=== PATIENT | female | born 1960 | race Caucasian/White ===

== ENCOUNTER 2017-10-07 15:51 | Inpatient (IN) | payer OTHER ==
--- NOTE | 2017-10-07 16:03 | EDPHY ---
H & P Time Seen by Provider: 10/07/17 15:54 HPI/ROS: CHIEF COMPLAINT: Limited trauma activation, fall from horse, right hip pain HISTORY OF PRESENT ILLNESS: The patient presents the emergency department is limited trauma activation. The patient was thrown from a horse landing on her right hip. She was unable to stand up or weight bear. She denies any associated numbness or weakness. The patient did not strike her head or lose consciousness. She has no complaints of headache, neck pain, chest pain, difficulty breathing or additional extremity complaints. The patient has no prior history of hip surgery. The patient did have a energy bar for lunch. Patient has remote history of breast cancer status post mastectomy. She is currently taking tamoxifen. The patient last ate at approximately 1:00 p.m.. REVIEW OF SYSTEMS: A comprehensive 10 point review of systems is otherwise negative aside from elements mentioned in the history of present illness. Source: Patient Exam Limitations: No limitations - Personal History Tetanus Vaccine Date: 2011 - Medical/Surgical History Hx Asthma: No Hx Chronic Respiratory Disease: No Hx Diabetes: No Hx Cardiac Disease: No Hx Renal Disease: No Hx Cirrhosis: No Hx Alcoholism: No Hx HIV/AIDS: No Hx Splenectomy or Spleen Trauma: No Other PMH: s/p left hand surgery, mastectomy - Social History Smoking Status: Never smoked - Physical Exam Exam: General Appearance: Alert, mild discomfort Eyes: Pupils equal and round no pallor or injection ENT, Mouth: Mucous membranes moist Respiratory: There are no retractions, lungs are clear to auscultation Cardiovascular: Regular rate and rhythm Gastrointestinal: Abdomen is soft and nontender, no masses, bowel sounds normal Neurological: 5/5 strength noted all 4 extremities. Was unable to assess strength in the right hip secondary to suspected fracture. Sensation intact to light touch throughout all dermatomal distributions in the right left leg Skin: Warm and dry, no rashes Musculoskeletal: Neck is supple nontender Extremities: The right leg flexed and internally rotated. Constitutional: Initial Vital Signs Temperature (C) 37.2 C 10/07/17 16:04 Heart Rate 66 10/07/17 16:04 Respiratory Rate 16 10/07/17 16:04 Blood Pressure 114/75 10/07/17 16:04 O2 Sat (%) 94 10/07/17 16:04 O2 Delivery Mode Room Air Allergies/Adverse Reactions: amoxicillin [Amoxicillin] Allergy (Verified 02/11/14 16:02) Hives Home Medications: Medication Instructions Recorded Herbals/Supplements -Info Only 1 ea PO DAILY 02/11/14 Multivitamins [Multivitamin (*)] 1 each PO DAILY 02/11/14 [place]-3 Fatty Acids [Fish Oil 1000 1,000 mg PO BID 02/11/14 mg (*)] Tamoxifen Citrate 20 mg PO DAILY 10/07/17 Medical Decision Making - Diagnostics EKG Interpretation: EKG: Complete interpretation has been separately recorded in the [facility] archive. Summary impression: Sinus rhythm, rate 70 Imaging Results: Imaging Impressions Hip X-Ray 10/07/17 16:01 Impression: Displaced angulated right femoral neck fracture. Extremity CT 10/07/17 16:46 Impression: Significantly displaced subcapital hip fracture. Please see above. We would be happy to review interactive 3-D reconstructions with you in the x- ray department. ED Course/Re-evaluation: The patient had an IV established. She received 0.5 mg of Dilaudid and 4 mg of Zofran. She presents to the ED is limited trauma activation. She has an isolated femoral neck fracture - I have downgraded her from limited trauma activation status at 4:30 p.m. In the setting of an isolated extremity fracture. Dr. Quinones from trauma surgery has been notified. He will see the patient in consultation. Consultation was made with Dr. Rivas Koch at 4:35 p.m.. He is evaluating the patient emergency department at 5:10 p.m.. The patient did undergo CT scan of the hip in the emergency department for evaluation of a possible acetabular fracture. The result of this imaging study demonstrated no evidence of a obvious acetabular or pelvic fracture. The patient will be admitted to a medical-surgical floor bed. Patient is taken to the operating room at 6:30 p.m.. She was seen by the general surgeon in the emergency department prior to transfer to the operating room. Differential Diagnosis: Differential diagnosis considered includes pelvic fracture, hip fracture, hip dislocation, neurovascular injury - Data Points Medications Given: Discontinued Medications Hydromorphone HCl (Dilaudid) 0.5 mg IVP EDNOW ONE Stop: 10/07/17 16:25 Last Admin: 10/07/17 16:34 Dose: 0.5 mg Hydromorphone HCl (Dilaudid) 1 mg IVP EDNOW ONE Stop: 10/07/17 17:30 Last Admin: 10/07/17 17:32 Dose: 1 mg Ondansetron HCl (Zofran) 4 mg IVP EDNOW ONE Stop: 10/07/17 16:26 Last Admin: 10/07/17 16:34 Dose: 4 mg Departure - Departure Disposition: [facility] Inpatient Acute Clinical Impression: Displaced fracture of right femoral neck Condition: Good
[2017-10-07] MEDS ORDERED: HYDROmorphONE/DILAUDID 2 MG/ML INJ IVP ONE ×2 (16:24→17:29)
[2017-10-07] MEDS ORDERED: ONDANSETRON 4 MG/2 ML VIAL IVP ONE (16:25)
[2017-10-07 17:11] LABS: PLATELET COUNT 252 10^3/uL (150-400)
--- NOTE | 2017-10-07 17:16 | CPEKG ---
Heart Rate: 70 RR Interval: 857 P-R Interval: 160 QRSD Interval: 88 QT Interval: 424 QTC Interval: 458 P [place]: 60 QRS [place]: 75 T Wave [place]: 65 EKG Severity - BORDERLINE ECG - EKG Impression: SINUS RHYTHM Electronically Signed By: Faheem Khalil 07-Oct-2017 18:23:46
--- NOTE | 2017-10-07 18:02 | PDGENHP ---
<Elisha Monaco S - Last Filed: 10/07/17 17:59> History & Physical Chief Complaint: Right hip pain History of Present Illness: Right hip pain following fall off horse 10/07/17. Unable to bear weight. Last meal at 1:30 pm. Time of fall: 2pm. Pertinent Past, Social, Family History: H/O bilateral mastectomy for breast cancer. Relevant Physical Exam: Right hip shortened and externally rotated. Unable to bear weight. X-ray and CT shows right hip femoral neck fracture. Cardiorespiratory Assessment: RRR, nonlabored breathing, no diaphoresis, C2A. <Rivas Koch R - Last Filed: 10/07/17 19:05> A/P Assessment: Closed, displaced right femoral neck fracture in 57yo active female with no antecedent hip pathology. This appears to be an isolated injury, and is considered a surgical emergency. Plan: Emergent transfer up to the OR for CR vs OR and IF. Bedrest and position of comfort. Signed and witnessed informed consent obtained and placed in chart by me (Jori Koch MD). All questions answered.
[2017-10-07] MEDS ORDERED: LR 1,000 ML IV ONE (18:12)
[2017-10-07] MEDS ORDERED: ceFAZolin 2 GM/SWFI 2 GM/20 ML SYR IVP ONE ×2 (18:29→19:00)
[2017-10-07] MEDS ORDERED: LR 1,000 ML IV SCH ×2 (18:30→23:26)
--- NOTE | 2017-10-07 18:41 | GCON ---
[f rep st] CONSULTATION HISTORY OF PRESENTING ILLNESS: The patient is a 57-year-old female who was riding a horse today. She has never taken this horse over a jump, and when it came up to the jump and stopped. The patient flew off the horse, landing on her right hip and broke the femoral neck. The accident happened approximately 2 :30, EMS arrived approximately 3 o'clock, and she was brought to [facility]. She was evaluated by Dr. Khalil and the right femoral neck fracture was identified. I was asked to come see her for trauma consultation. She will be admitted by Dr. Koch. He will take her to surgery for operative repair of her right hip. She had a flax muffin and orange juice at 6:30, she had a Power bar at 11 and another Power bar at 1:30. Note is made that she was wearing a helmet, did not hit her head and did not have a loss of consciousness. On admission, her airway was unencumbered. She was breathing without difficulty. She persists in indicating the only pain she has is her right hip. SOCIAL HISTORY: She does not smoke. She drinks 1 glass of wine 5-7 nights a week. ALLERGIES: To amoxicillin, as manifested by hives. PAST MEDICAL HISTORY: She had a bilateral mastectomy for breast cancer and takes tamoxifen. The only other surgery was a left UCL. There is no history of rheumatic fever, tuberculosis, hepatitis, or transfusions. REVIEW OF SYSTEMS: As mentioned above, she had breast cancer which was treated by bilateral mastectomy and tamoxifen. She wears contacts for visual correction. She has 4 dental crowns. Review of systems otherwise quite negative. No limits on her activities. No history of steroid use. PHYSICAL EXAMINATION: VITAL SIGNS: 114/75, at 88. Respiratory rate is 16. Room air sats are 94. Temperature is 37.2. GENERAL: She is awake and alert, complaining only of her right hip. HEENT: Her skull is normocephalic and atraumatic. There is no Avila sign. There are no raccoon eyes. NEUROLOGIC: She is oriented to person, place, and time. Melvin Coma Scale is 15. Strength is 5/5 in all muscle groups. Cerebellar function is intact to finger- nose testing. She is able to do serial 7s. RECTAL: Examination is not performed at this time. MUSCULOSKELETAL: Right upper extremity is unremarkable. Right clavicle is palpably normal. The left clavicle has an irregularity to it consistent with a possible prior fracture. She does not recall ever having a clavicular fracture. CHEST: Stable to AP and lateral compression. Lung sounds are equal, though I am unable to sit her up to examine her back completely. BACK: Her spine is palpably nontender throughout its length. CARDIAC: S1, S2 are normal. ABDOMEN: Soft and nontender. Pelvis is stable to AP and lateral compression. Pressure is not placed over the right hip. EXTREMITIES: Lower extremities are unremarkable. She has good pulses and sensation in her right lower extremity. LABORATORY: Her white blood cell count is 5.8, hematocrit is 37. Her chemistries are unremarkable. IMPRESSION: Patient with isolated orthopedic injury from horse riding accident. I do not detect any other signs of current trauma. The irregular left clavicle appears to be an old, unrecollected injury. /[id number]/MODL MTDD
[2017-10-07] MEDS ORDERED: BUPIVACAINE 0.25% 30 ML SDV ONE (18:54)
[2017-10-07] MEDS ORDERED: CHLORHEXIDINE GLUC HIBICLENS 118 ML BTL TP ONE (18:54)
[2017-10-07] MEDS ORDERED: MIDAZOLAM 2 MG/2 ML VIAL IVP ONE (19:00)
--- NOTE | 2017-10-07 19:06 | PDANEPAE ---
ANE History of Present Illness ORIF Right femor ANE Past Medical History - Cardiovascular History Hx Hypertension: No Hx Arrhythmias: No Hx Coronary Artery / Peripheral Vascular Disease: No Hx CHF / Valvular Disease: No Hx Palpitations: No - Pulmonary History Hx COPD: No Hx Asthma/Reactive Airway Disease: No Hx Recent Upper Respiratory Infection: No Hx Oxygen in Use at Home: No Hx Sleep Apnea: No - Neurologic History Hx Cerebrovascular Accident: No Hx Seizures: No Hx Dementia: No - Endocrine History Hx Diabetes: No Hypothyroid: No Hyperthyroid: No - Renal History Hx Renal Disorders: No - Liver History Hx Hepatic Disorders: No - Neurological & Psychiatric Hx Hx Neurological and Psychiatric Disorders: No - Cancer History Hx Cancer: Yes Cancer History Comment: R breast CA. - Congenital Disorder History Hx Congenital Disorders: No - GI History GERD: no Hx Gastrointestinal Disorders: No - Other Health History Other Health History: none - Chronic Pain History Chronic Pain: No - Surgical History Prior Surgeries: 1985- thumb surg. ANE Review of Systems Review of Systems: - Exercise capacity METS (RN): 4 METS ANE Patient History - Allergies Allergies/Adverse Reactions: amoxicillin [Amoxicillin] Allergy (Verified 02/11/14 16:02) Hives - Home Medications Home medications: home medication list seen and reviewed Home Medications: Herbals/Supplements -Info Only 1 ea PO DAILY 02/11/14 [Last Taken 02/11/14] Multivitamins [Multivitamin (*)] 1 each PO DAILY 02/11/14 [Last Taken 02/15/14 09:00] [place]-3 Fatty Acids [Fish Oil 1000 mg (*)] 1,000 mg PO BID 02/11/14 [Last Taken 02/11/14] Tamoxifen Citrate 20 mg PO DAILY 10/07/17 [Last Taken Unknown] - NPO status NPO Since - Liquids (Date): 10/07/17 NPO Since - Liquids (Time): 13:30 NPO Since - Solids (Date): 10/07/17 NPO Since - Solids (Time): 13:30 - Anes Hx Anes Hx: post operative nausea - Smoking Hx Smoking Status: Never smoked Marijuana use: No - Alcohol Use Alcohol Use: Occasionally - Family Anes Hx Family Hx Anesthesia Complications: mother-memory issues. ANE Labs/Vital Signs - Labs Result Diagrams: 10/07/17 17:04 10/07/17 17:04 - Vital Signs Blood Pressure: 102/61 Heart Rate: 61 Respiratory Rate: 12 O2 Sat (%): 98 Height: 177.8 cm Weight: 65.771 kg ANE Physical Exam - Airway Neck exam: FROM Mallampati Score: Class 2 Mouth exam: normal dental/mouth exam - Pulmonary Pulmonary: no respiratory distress - Cardiovascular Cardiovascular: regular rate and rhythym, no murmur, rub, or gallop - ASA Status ASA Status: II ANE Anesthesia Plan Anesthesia Plan: general endotracheal anesthesia Total IV Anesthesia: No
--- NOTE | 2017-10-07 19:10 | PDANEPAE ---
ANE Past Medical History - Cardiovascular History Hx Hypertension: No Hx Arrhythmias: No Hx Coronary Artery / Peripheral Vascular Disease: No Hx CHF / Valvular Disease: No Hx Palpitations: No - Pulmonary History Hx COPD: No Hx Asthma/Reactive Airway Disease: No Hx Recent Upper Respiratory Infection: No Hx Oxygen in Use at Home: No Hx Sleep Apnea: No - Neurologic History Hx Cerebrovascular Accident: No Hx Seizures: No Hx Dementia: No - Endocrine History Hx Diabetes: No Hypothyroid: No Hyperthyroid: No - Renal History Hx Renal Disorders: No - Liver History Hx Hepatic Disorders: No - Neurological & Psychiatric Hx Hx Neurological and Psychiatric Disorders: No - Cancer History Hx Cancer: Yes Cancer History Comment: R breast CA. - Congenital Disorder History Hx Congenital Disorders: No - GI History GERD: no Hx Gastrointestinal Disorders: No - Other Health History Other Health History: none - Chronic Pain History Chronic Pain: No - Surgical History Prior Surgeries: 1985-L thumb surg. ANE Review of Systems Review of Systems: - Exercise capacity METS (RN): 4 METS ANE Patient History - Allergies Allergies/Adverse Reactions: amoxicillin [Amoxicillin] Allergy (Verified 02/11/14 16:02) Hives - Home Medications Home Medications: Herbals/Supplements -Info Only 1 ea PO DAILY 02/11/14 [Last Taken 02/11/14] Multivitamins [Multivitamin (*)] 1 each PO DAILY 02/11/14 [Last Taken 02/15/14 09:00] [place]-3 Fatty Acids [Fish Oil 1000 mg (*)] 1,000 mg PO BID 02/11/14 [Last Taken 02/11/14] Tamoxifen Citrate 20 mg PO DAILY 10/07/17 [Last Taken Unknown] - NPO status NPO Since - Liquids (Date): 10/07/17 NPO Since - Liquids (Time): 13:30 NPO Since - Solids (Date): 10/07/17 NPO Since - Solids (Time): 13:30 - Smoking Hx Smoking Status: Never smoked - Alcohol Use Alcohol Use: Occasionally - Family Anes Hx Family Hx Anesthesia Complications: mother-memory issues. ANE Labs/Vital Signs - Labs Result Diagrams: 10/07/17 17:04 10/07/17 17:04 - Vital Signs Blood Pressure: 102/61 Heart Rate: 61 Respiratory Rate: 12 O2 Sat (%): 98 Height: 177.8 cm Weight: 65.771 kg
[2017-10-07] MEDS ORDERED: SCOPOLAMINE HYDROBROMIDE 1 MG/3 DAYS PATCH TD SCH (19:15)
[2017-10-07] MEDS ORDERED: LIDOCAINE 2% 5 ML SDV ONE (19:24)
[2017-10-07] MEDS ORDERED: ONDANSETRON 4 MG/2 ML VIAL ONE (19:24)
[2017-10-07] MEDS ORDERED: DEXAMETHASONE 4 MG/ML VIAL ONE (19:24)
[2017-10-07] MEDS ORDERED: PROPOFOL/EMULSION 500 MG/50 ML BOTTLE IV ONE ×2 (19:24)
[2017-10-07] MEDS ORDERED: ROCURONIUM 100 MG/10 ML VIAL ONE (19:24)
[2017-10-07] MEDS ORDERED: GLYCOPYRROLATE 0.2 MG/1 ML VIAL ONE (19:24)
--- NOTE | 2017-10-07 19:25 | GCON ---
[f rep st] CONSULTATION HISTORY OF PRESENT ILLNESS: Patient is a pleasant 57-year-old female who presents to the ED following a fall off a horse and landing directly on her right hip. She was unable to stand or bear weight at this time and is holding her hip in external rotation while in bed. She did not strike her head or lose consciousness at the time of her fall. Patient ate a Power Bar at 1:30 p.m. and the fall occurred at approximately 2pm Pertinent history for bilateral breast cancer with double mastectomy, and is currently taking tamoxifen. She denies any worsening pain, abnormal numbness, tingling, change in heat or color of the extremity, cough, congestion, shortness of breath, claudication, change in distal ROM, headache, neck pain, chest pain, dyspnea. PAST MEDICAL HISTORY: Pertinent for previous history of breast cancer, treated without radiation or chemotherapy. PAST SURGICAL HISTORY: Pertinent for left hand surgery and bilateral mastectomy. ALLERGIES: PCN --> hives/rash. MEDICATIONS: Tamoxifen. SOCIAL HISTORY: No history of smoking, drug or alcohol use. . Active with horseback riding. FAMILY HISTORY: No h/o bleeding problems, respiratory issues or CVD. REVIEW OF SYSTEMS: A 10-point review of systems was negative except for as stated above. PHYSICAL EXAMINATION: GENERAL: Patient is alert and oriented. Able to respond appropriately to questions. Mild discomfort noted. HEENT: Normocephalic, atraumatic. EOMs intact. Moist buccal mucosa. Patent nares. Hearing intact. NECK: No lymphadenopathy. Full AROM. Negative Lhermitte. Negative Spurling. NTTP. CARDIOVASCULAR: Regular rate and rhythm. LUNGS: Nonlabored breathing. No diaphoresis. SKIN: Intact, no ecchymosis, erythema, edema, calor or other lesions. No tattoos. MUSCULOSKELETAL: RLE shortened and externally rotated with mild swelling noted to right hip. TTP over right hip and with any RLE motion. No erythema, ecchymosis or calor noted. Comp's soft. NTTP from R mid thigh to foot/ankle. DNVI bilaterally with gross sensation intact bilaterally in lower extremities with no focal deficits. Calves soft, supple, and nontender to palpation bilaterally with brisk cap refill and palpable DP/PT pulses. Negative bilateral Homans. NEURO: Nonfocal, no deficits noted, C5-T1 and L2-S1 intact. DTRs 1+ BUE's, deferred on BLEs. Secondary survey negative for any other MSK injuries over BUE /BLEs. PSYCH: A+Ox3. Appropriate mood and affect. RADIOLOGY: Plain XRs and CT of right hip show a displaced and rotated subcapital femoral neck fracture with some comminution. No other fractures, malalignments or deformities noted. Images personally reviewed by myself and Dr. Koch. ASSESSMENT: Closed, displaced, right hip subcapital femoral neck fracture ( Garden IV) in young person, representing a surgical emergency. PLAN: At this time, patient is to be kept n.p.o. She has provided an informed consent by Dr. Koch today for right hip closed vs ORIF. She will be taken to surgery emergently once cleared by anesthesia. Dr Quinones of Trauma svce has evaluated the patient, and agrees that she has an isolated R hip injury, representing a surgical emergency, and has agreed to allow this surgery before his own surgeries. EKG has been ordered. Proph IV abx, SCDs have been ordered preoperatively as well as the use of knee high JOSE EDUARDO hose for DVT prevention. Additionally, patient is on bed rest and position of comfort. We will move her to the OR DOV and be admitted to Dr Koch. Patient was seen and examined in conjunction with Dr. Koch. /[id number]/MODL MTDD
[2017-10-07] MEDS ORDERED: MIDAZOLAM 2 MG/2 ML VIAL ONE (19:29)
[2017-10-07] MEDS ORDERED: epHEDrine SULFATE 10 MG/ML SYR ONE ×2 (20:39)
[2017-10-07] MEDS ORDERED: oxyCODONE IR 5 MG TAB PO PRN (20:57)
[2017-10-07] MEDS ORDERED: HYDROCODONE/APAP 5/325 TAB PO PRN (20:57)
[2017-10-07] MEDS ORDERED: NALOXONE HCL 0.4 MG/ML INJ IVP PRN (20:57)
[2017-10-07] MEDS ORDERED: PROMETHAZINE HCL 25 MG/ML INJ IVP PRN (20:57)
[2017-10-07] MEDS ORDERED: ONDANSETRON 4 MG/2 ML VIAL IVP PRN (20:57)
[2017-10-07] MEDS ORDERED: ALBUTEROL 3 ML DEYVIAL IH PRN (20:57)
[2017-10-07] MEDS ORDERED: HYDROmorphONE/DILAUDID 2 MG/ML INJ IVP PRN (20:57)
[2017-10-07] MEDS ORDERED: ACETAMINOPHEN 500 MG TAB PO PRN (20:57)
[2017-10-07] MEDS ORDERED: MEPERIDINE 25 MG/ML SYR ONE (21:41)
[2017-10-07] MEDS: MEPERIDINE 25 MG/ML SYR IVP PRN ×2 (21:44→22:00)
--- NOTE | 2017-10-07 22:05 | POSTOPPROG ---
Post Op Note Date of Operation: 10/07/17 Surgeon: Rivas Koch Medical Parasitologist: COLE Cast Anesthesia: GET(General Endotracheal) Pre-op Diagnosis: Right hip femoral neck fracture Post-op Diagnosis: Right hip femoral neck fracture Indication: Right hip femoral neck fracture Procedure: Right hip ORIF with percutaneous pinning Inf/Abcess present in the surg proc area at time of surgery?: No Depth: Deep Incisional (Fascial) EBL: Minimal Complications: None.
[2017-10-07] MEDS ORDERED: fentaNYL 100 MCG/2 ML INJ ONE (22:14)
[2017-10-07] MEDS: fentaNYL 100 MCG/2 ML INJ IVP PRN ×3 (22:16→22:37)
--- NOTE | 2017-10-07 22:32 | GOP ---
[f rep st] OPERATIVE REPORT DATE OF OPERATION: 10/07/2017 SURGEON: Rivas Koch MD IT RISK AND ASSURANCE SENIOR MANAGER: Elisha Monaco PA-C. ANESTHESIA: General. ANESTHESIOLOGIST: Dr. Patel. PREOPERATIVE DIAGNOSIS: Closed, displaced right femoral neck fracture. POSTOPERATIVE DIAGNOSIS: Closed, displaced right femoral neck fracture. PROCEDURE PERFORMED: Closed reduction, internal fixation of right femoral neck fracture. FINDINGS: Garden IV fully displaced right femoral neck fracture, closed, bone quality was relatively good for the patient's ethnicity, age, and sex. There was some posterior comminution,; though, othe rwise an anatomic reduction was obtained directly by me with closed measures. After fixation, leg le ngths of both extremities, as well as rotation was symmetric and heel palm testing was normal. SPECIMENS: None. ESTIMATED BLOOD LOSS: 20 cc. INDICATIONS: This is a 57-year-old active female who was thrown from a horse earlier today, landing directly on her right hip. She had no prior hip history, no antecedent hip pain, unlimited walking t olerance, and was very active with athletics and hiking. As a result of the displaced femoral neck f racture in a young person, this was treated as a surgical emergency and she was brought to the operat ing room as soon as possible. She was educated regarding her diagnosis, as well as the risks, benefi ts, and alternatives to surgery. She provided a signed and witnessed informed consent, which was roma guadalupe in the patient's chart. See history and physical for additional information. The patient was se en by the Trauma Service, Dr. Quinones, prior to surgery, and we agreed that this was an isolated injur y after 2 secondary surveys. DESCRIPTION OF PROCEDURE: Dunia was identified in the preoperative holding area and her right hip wa s signed and designated as the operative site. The patient was confirmed in left lower extremity JOSE EDUARDO hoes and SCDs were removed due to placement of the left lower extremity in the fracture table boot. However, prior to surgery and medially after surgery, SCDs were in place. The patient was carefully positioned on the fracture table after general anesthesia. Closed reduction removal using Leadbette r technique was performed by me with a palpable clunk and immediate heel palm testing normal. Prior to placing the legs in the traction devices, the AP image of the right hip was confirmed to be anatom ic in appearance. Next, the right lower extremity was carefully placed in the fracture table maintai hernandez traction to facilitate maintenance of reduction. The right lower extremity was then placed in a pproximately neutral rotation with toes straight up and neutral adduction. It was neutral in flexion /extension as well. Left lower extremity was extended at the hip and the leg was dropped using the o pposite leg arm. In putting both feet in the boots, abundant padding was placed around both lower ex tremities, including ABDs and cast padding. Once the fracture was confirmed anatomic in orientation both on AP and lateral views using the large C-arm, the right hip was prepped and draped in the usual sterile manner. Please note, the large C-arm was also prepped and draped in the usual manner in ord er to be used sterile throughout the surgery. A 5 cm lateral incision was placed directly over the lateral aspect of the greater trochanter. A ful l-thickness dermal incision was made after the skin was anesthetized with 0.25% Marcaine with epineph rine. Careful dissection was taken down through the subcutaneous fat, which was relatively abundant. Retractors were placed, including Meyerding retractors. The IT band was identified and then divide d in parallel with its fibers and the skin incision. The vastus lateralis fascia was then identified and divided, and blunt dissection was used to divide through the lateral muscle. The lateral cortex of the femur was identified and then a series of 3 guidewires were placed in optimum position, i.e. inferior and center along the calcar, and then 1 anterosuperior and posterosuperior to the initial in ferior guidewire. Inverted triangle constellation of pins was created. These wires were found to be in the optimum position on both AP and lateral views. Each of them were then overdrilled with a can nulated 5-0 drill through the lateral cortex and lateral aspect of the proximal femur short of the fr acture site. Measurements were taken for the appropriate depth of each cannulated screw. Each screw was placed with a washer. A total of 3 screws were placed. The inferior screw was placed 1st with a long partial thread to just beyond the fracture site, and only limited compression was utilized. N ext, the anterosuperior screw was placed, and a short, partially threaded screw with washer and compr ession was achieved here. Finally, an additional long threaded screw was placed with only the proxim al threads not crossing the fracture site. This was more of a neutralization screw. Excellent compr ession was achieved through all screws. Anatomic reduction was achieved with very nice anatomic alig nment and compression at the fracture site. Once this was completed, finalized images were taken wit h the large C-arm. Anatomic reduction, as well as appropriate position of the hardware was confirmed . Finalized images were printed. The wound was then copiously irrigated with sterile saline and bhargav sure was performed. IT band was closed with multiple #1 Ethibond sutures. The deep fat space was reapproximated with 0 V icryl sutures. The deep dermal layer was closed with multiple 2-0 Vicryl sutures. The skin was clos ed with mechelle. The wound was further anesthetized with 0.25% Marcaine with epinephrine. Sterile p ostop surgical dressings were applied. Right lower extremity JOSE EDUARDO hoes and SCDs were applied and the left lower extremity SCD was then reapplied. Both limbs were taken out of the traction devices and b oots. The patient was then transferred to her [facility] and anesthesia service took over to wake her up . TOURNIQUET TIME: None. DRAINS: None. IMPLANTS: Synthes 7.3 mm cannulated screws with washers, all partially-threaded; 2 long thread, 1 a short thread. A total of 3 pairs of screw and washers were placed. COMPLICATIONS: None. DISPOSITION: The patient was extubated and transferred to the PACU in stable condition. /[id number]/MODL
[2017-10-07] MEDS ORDERED: ceFAZolin 2 GM/DEXTROSE 100 ML IV SCH (23:26)
[2017-10-08] MEDS ORDERED: oxyCODONE IR 5 MG TAB PO PRN (01:07)
[2017-10-08] MEDS: HYDROCODONE/APAP 5/325 TAB PO PRN ×2 (01:18→05:26)
[2017-10-08] MEDS: ceFAZolin 2 GM/SWFI 2 GM/20 ML SYR IVP SCH ×3 (05:26→20:36)
[2017-10-08 05:27] LABS: PLATELET COUNT 189 10^3/uL (150-400)
[2017-10-08] MEDS ORDERED: ONDANSETRON 4 MG/2 ML VIAL IVP PRN (06:03)
[2017-10-08] MEDS ORDERED: ONDANSETRON DISINTEGRATING 4 MG TAB PO PRN (06:03)
[2017-10-08] MEDS: TAMOXIFEN CITRATE 10 MG TAB PO SCH (08:49)
[2017-10-08] MEDS ORDERED: PROMETHAZINE HCL 25 MG/ML INJ IVP PRN (08:51)
[2017-10-08] MEDS: OMEGA-3 FATTY ACIDS 1,000 MG CAP PO SCH (08:54)
[2017-10-08] MEDS: MULTIVITAMINS 1 EACH TAB PO SCH (08:54)
--- NOTE | 2017-10-08 08:55 | SOAPPROG ---
SOAP Progress Note Assessment/Plan: Assessment: POD#1 Right hip femoral neck fx with percutaneous pinning: overall doing well. Pain well controlled. Passed flatus. Has some nausea. Plan: -Up with PT/OT: TTWB. Appreciate their reccs. -Dressing: maintain dry dressing. Notify us with abnormal bleeding/oozing/ discharge, change in heat/color around wound site. -DVT: Lovenox begin POD #1 for 14 days, will need home Rx. SCDs. JOSE EDUARDO hose x 2 weeks. IS. -Continue the 24hrs of Cefazolin today until finished. Patient is tolerating well with no signs of cross reactivity from her PCN allergy. -Home meds: resume. -Pain: pain well controlled at this time. -Dispo: Likely clear to D/C once cleared by PT/OT and case management. -Questions/concerns call our office at [phone]. Patient discussed with Dr. Koch. 10/08/17 08:58 Subjective: in room with her, she is able to respond to questions appropriately. Denies abnormal numbness/tingling, change in heat/color of extremity or of wound site, cough, congestion, chest pain, SOB, dyspnea, claudication, abnormal bleeding/oozing/discharge, change in distal ROM. Has been compliant in not ambulating. Passed flatus and has not yet had a BM. Has some nausea. Pain is a 5 /10 this morning. Objective: Vital Signs Temp Pulse Resp BP Pulse Ox 36.9 C 49 L 16 94/61 L 97 10/08/17 08:00 10/08/17 08:00 10/08/17 08:00 10/08/17 08:00 10/08/17 08:00 Laboratory Results 10/08/17 04:29 10/08/17 04:29 10/07/17 10/08/17 10/09/17 05:59 05:59 05:59 Intake Total 1155 350 Output Total 950 Balance 205 350 LABORATORY 10/08/17 10/08/17 10/07/17 04:29 04:29 17:04 WBC 7.76 10^3/uL 10^3/uL (3.80-9.50) RBC 3.50 10^6/uL L 10^6/uL (4.18-5.33) Hgb 12.0 g/dL L g/dL (12.6-16.3) Hct 34.9 % L % (38.0-47.0) MCV 99.7 fL fL (81.5-99.8) MCH 34.3 pg H pg (27.9-34.1) MCHC 34.4 g/dL g/dL (32.4-36.7) RDW 11.5 % % (11.5-15.2) Plt Count 189 10^3/uL D 10^3/uL (150-400) MPV 9.6 fL fL (8.7-11.7) Neut % (Auto) 87.2 % H % (39.3-74.2) Lymph % (Auto) 7.2 % L % (15.0-45.0) [place] % (Auto) 5.2 % % (4.5-13.0) Eos % (Auto) 0.0 % L % (0.6-7.6) Baso % (Auto) 0.1 % L % (0.3-1.7) Nucleat RBC Rel Count 0.0 % % (0.0-0.2) Absolute Neuts (auto) 6.77 10^3/uL H 10^3/uL (1.70-6.50) Absolute Lymphs (auto) 0.56 10^3/uL L 10^3/uL (1.00-3.00) Absolute Monos (auto) 0.40 10^3/uL 10^3/uL (0.30-0.80) Absolute Eos (auto) 0.00 10^3/uL L 10^3/uL (0.03-0.40) Absolute Basos (auto) 0.01 10^3/uL L 10^3/uL (0.02-0.10) Absolute Nucleated RBC 0.00 10^3/uL 10^3/uL (0-0.01) Immature Gran % 0.3 % % (0.0-1.1) Immature Gran # 0.02 10^3/uL 10^3/uL (0.00-0.10) Sodium 137 mEq/L mEq/L 141 mEq/L mEq/L (135-145) (135-145) Potassium 4.6 mEq/L mEq/L 3.9 mEq/L mEq/L (3.5-5.2) (3.5-5.2) Chloride 105 mEq/L mEq/L 105 mEq/L mEq/L (97-110) (97-110) Carbon Dioxide 27 mEq/l mEq/l 27 mEq/l mEq/l (22-31) (22-31) Anion Gap 5 mEq/L L mEq/L 9 mEq/L mEq/L (8-16) (8-16) BUN 17 mg/dL mg/dL 21 mg/dL mg/dL (7-23) (7-23) Creatinine 0.7 mg/dL mg/dL 0.9 mg/dL mg/dL (0.6-1.0) (0.6-1.0) Estimated GFR > 60 > 60 Glucose 118 mg/dL H mg/dL 88 mg/dL mg/dL (70-100) (70-100) Calcium 8.7 mg/dL mg/dL 8.8 mg/dL mg/dL (8.5-10.4) (8.5-10.4) Total Bilirubin 0.6 mg/dL mg/dL (0.1-1.4) AST 24 IU/L IU/L (14-46) ALT 26 IU/L IU/L (9-52) Alkaline Phosphatase 47 IU/L IU/L (38-126) Total Protein 5.3 g/dL L g/dL (6.3-8.2) Albumin 3.1 g/dL L g/dL (3.5-5.0) 10/07/17 17:04 WBC 5.80 10^3/uL 10^3/uL (3.80-9.50) RBC 3.76 10^6/uL L 10^6/uL (4.18-5.33) Hgb 13.0 g/dL g/dL (12.6-16.3) Hct 37.3 % L % (38.0-47.0) MCV 99.2 fL fL (81.5-99.8) MCH 34.6 pg H pg (27.9-34.1) MCHC 34.9 g/dL g/dL (32.4-36.7) RDW 11.6 % % (11.5-15.2) Plt Count 252 10^3/uL 10^3/uL (150-400) MPV 9.9 fL fL (8.7-11.7) Neut % (Auto) 68.7 % % (39.3-74.2) Lymph % (Auto) 24.1 % % (15.0-45.0) [place] % (Auto) 5.2 % % (4.5-13.0) Eos % (Auto) 1.2 % % (0.6-7.6) Baso % (Auto) 0.5 % % (0.3-1.7) Nucleat RBC Rel Count 0.0 % % (0.0-0.2) Absolute Neuts (auto) 3.98 10^3/uL 10^3/uL (1.70-6.50) Absolute Lymphs (auto) 1.40 10^3/uL 10^3/uL (1.00-3.00) Absolute Monos (auto) 0.30 10^3/uL 10^3/uL (0.30-0.80) Absolute Eos (auto) 0.07 10^3/uL 10^3/uL (0.03-0.40) Absolute Basos (auto) 0.03 10^3/uL 10^3/uL (0.02-0.10) Absolute Nucleated RBC 0.00 10^3/uL 10^3/uL (0-0.01) Immature Gran % 0.3 % % (0.0-1.1) Immature Gran # 0.02 10^3/uL 10^3/uL (0.00-0.10) Sodium Potassium Chloride Carbon Dioxide Anion Gap BUN Creatinine Estimated GFR Glucose Calcium Total Bilirubin AST ALT Alkaline Phosphatase Total Protein Albumin A/o. Able to respond appropriately to questions. NAD. Non-labored breathing. No diaphoresis. M/S: Right hip bandaged with no abnormal bleeding/oozing/discharge around wound site. No erythema, edema or calor noted around wound site or in b/l lower extremities. Compartments around wound site soft. Passive ROM in b/l great toe in all planes produced no reproducible pain in lower compartments. DNVI b/l with gross sensation intact and no focal deficits. Brisk cap refill b/l in lower extremities. AROM: good distal ROM in knees/ankle/toes. Strength: 4/5 hip flexor on right compared to 5/5 on left, limited by severe pain to patient; otherwise 5/5 strength present in b/l lower extremities. Negative b/l Homans. Calves soft/supple and NTTP b/l. Images: 2 views of post-operative right hip shows screws in good position and fracture in good position/alignment with no other fractures, malalignments or deformities noted. ICD10 Worksheet Patient Problems: Problems Problem Status Onset Displaced fracture of right femoral neck Acute Neoplasm of breast, female, malignant Acute
--- NOTE | 2017-10-08 08:58 | PDMN ---
Medical Necessity Medical necessity: S 615 hip fracture- Open repair 3 days R Hip ORIF with perc. pinning.
[2017-10-08] MEDS ORDERED: Herbals/Supplements -Info Only PO SCH (09:00)
[2017-10-08] MEDS: ENOXAPARIN 40 MG/0.4 ML SYR SC SCH (09:44)
[2017-10-08] MEDS: ACETAMINOPHEN 500 MG TAB PO PRN ×2 (11:20→17:20)
--- NOTE | 2017-10-08 15:50 | ASMTCMCOM ---
CM Note CM Note Notes: Pt had surgery for hip fracture after a fall of a horse. PT rec home w 24/hr supervision, pt reports her will be able to supervision. OT rec pending. CM to follow. Date Signed: 10/08/2017 03:50 PM Electronically Signed By:ANGÉLICA Berg
[2017-10-08] MEDS ORDERED: traMADol 50 MG TAB PO PRN (18:14)
[2017-10-08] MEDS: ACETAMINOPHEN 325 MG TAB PO PRN (23:19)
[2017-10-09] MEDS: ACETAMINOPHEN 325 MG TAB PO PRN ×2 (04:51→11:35)
[2017-10-09 07:58] VITALS: BP 108/61
[2017-10-09] MEDS: ENOXAPARIN 40 MG/0.4 ML SYR SC SCH (07:59)
[2017-10-09] MEDS: TAMOXIFEN CITRATE 10 MG TAB PO SCH (08:01)
[2017-10-09] MEDS: MULTIVITAMINS 1 EACH TAB PO SCH (08:03)
[2017-10-09] MEDS: OMEGA-3 FATTY ACIDS 1,000 MG CAP PO SCH (08:03)
--- NOTE | 2017-10-09 09:21 | SOAPPROG ---
<Carlos EnriqueElisha S - Last Filed: 10/09/17 09:22> SOAP Progress Note Assessment/Plan: Assessment: POD#2 Right hip femoral neck fx with percutaneous pinning: overall doing well. Pain well controlled. Passed flatus. Has some nausea with narcotics, therefore would prefer to take Tylenol for pain. Plan: -Up with PT/OT: TTWB. Appreciate their reccs. -Dressing: maintain dry dressing; new dry dressing placed by myself today. Notify us with abnormal bleeding/oozing/discharge, change in heat/color around wound site. -DVT: Lovenox, began yesterday, take once daily for 14 days, will need home Rx. SCDs. JOSE EDUARDO haddade x 2 weeks. IS. -Finished the 24hrs of Cefazolin. Patient is tolerating well with no signs of cross reactivity from her PCN allergy. -Home meds: resume. -Pain: pain well controlled at this time with Tylenol. -Dispo: Likely clear to D/C once cleared by PT/OT and case management. -Questions/concerns call our office at [phone]. Patient discussed with Dr. Koch. 10/09/17 09:19 Subjective: in room with her, she is able to respond to questions appropriately. Denies abnormal numbness/tingling, change in heat/color of extremity or of wound site, cough, congestion, chest pain, SOB, dyspnea, claudication, abnormal bleeding/oozing/discharge, change in distal ROM. Has been compliant in TTWB while ambulating; ambulating without difficulty with use of walker. Passed flatus and has not yet had a BM. Has some nausea. Pain well controlled by Tylenol this am. Objective: Vital Signs Temp Pulse Resp BP Pulse Ox 36.9 C 60 16 108/61 93 10/09/17 07:57 10/09/17 07:57 10/09/17 07:57 10/09/17 07:57 10/09/17 07:57 Laboratory Results 10/08/17 04:29 10/08/17 04:29 10/08/17 10/09/17 10/10/17 05:59 05:59 05:59 Intake Total 1155 350 Output Total 950 350 Balance 205 0 A/o. Able to respond appropriately to questions. NAD. Non-labored breathing. No diaphoresis. M/S: Right hip bandaged with no abnormal bleeding/oozing/discharge around wound site. Upon take down of dressing to change to new dry dressing there is no erythema, edema or calor noted around wound site or in b/l lower extremities. Compartments around wound site soft. Passive ROM in b/l great toe in all planes produced no reproducible pain in lower compartments. DNVI b/l with gross sensation intact and no focal deficits. Brisk cap refill b/l in lower extremities. AROM: good distal ROM in knees/ankle/toes. Strength: 4/5 hip flexor on right compared to 5/5 on left, limited by pain to patient; otherwise 5 /5 strength present in b/l lower extremities. Negative b/l Homans. Calves soft/ supple and NTTP b/l. Saw patient ambulating with use of walker around the floor , compliant with TTWB. Images: 2 views of post-operative right hip shows screws in good position and fracture in good position/alignment with no other fractures, malalignments or deformities noted. - Pending Discharge Pending Discharge Within 24 Hours: Yes Pending Discharge Date: 10/10/17 (Pending CM and PT/OT clearance.) Pending Discharge Time: 11:00 ICD10 Worksheet Patient Problems: Problems Problem Status Onset Displaced fracture of right femoral neck Acute Neoplasm of breast, female, malignant Acute <Rivas Koch R - Last Filed: 10/09/17 10:56> SOAP Progress Note Assessment/Plan: Assessment: Plan: OK for d/c home with C today. Continue VTE chemo/mechano prophylaxis x 2 weeks post-op. F/u w/ me in clinic in 8-12 days for new XRs, wound care and standard post-op out-pt care. Please call with any questions. 10/09/17 10:54 Objective: Vital Signs Temp Pulse Resp BP Pulse Ox 36.9 C 60 16 108/61 93 10/09/17 07:57 10/09/17 07:57 10/09/17 07:57 10/09/17 07:57 10/09/17 07:57 Laboratory Results 10/08/17 04:29 10/08/17 04:29 10/08/17 10/09/17 10/10/17 05:59 05:59 05:59 Intake Total 1155 350 200 Output Total 950 350 Balance 205 0 200
--- NOTE | 2017-10-09 11:37 | ASMTCMCOM ---
CM Note CM Note Notes: OT rec home. Pt medically stable for d/c with family support. No CM d/c needs identified. Date Signed: 10/09/2017 11:36 AM Electronically Signed By:ANGÉLICA Berg
--- NOTE | 2017-10-09 11:38 | ASMTLACE ---
[place] Length of stay for Answers: 2 days current admission Acuity / Level of Answers: Yes Care: Did the patient have an inpatient admission? # of Emergency department Answers: 0 visits in the last 6 months Score: 5 Date Signed: 10/09/2017 11:38 AM Electronically Signed By:ANGÉLICA Berg
--- NOTE | 2017-10-09 16:40 | POSTANESTH ---
Post Anesthetic Evaluation Cardiovascular Status: Normal, Stable Respiratory Status: Normal, Stable Level of Consciousness/Mental Status: Can Participate in Eval Pain Control: Adequate, Prn Tx Ordered Nausea/Vomiting Control: Adequate, Prn Tx Ordered Complications Possibly Related to Anesthesia: None Noted (DC to home today)
[2017-10-10] MEDS ORDERED: PATCH REMOVAL 1 EA PATCH TD SCH (19:02)
--- NOTE | 2017-10-13 13:42 | GDS ---
[f rep st] DISCHARGE SUMMARY DISCHARGE DIAGNOSES: Right hip femoral neck fracture. PROCEDURE: Right hip femoral neck fracture with percutaneous pinning. COMPLICATIONS: None. CONSULTATIONS: PT/OT. PERTINENT HISTORY: Patient presented to the ED with a right hip femoral neck fracture after falling off a horse. Emergent surgery was performed that evening, and she was placed inpatient following karime jacobsen. There were no complications during surgery. The next day, she was up with PT, OT, TTWB. Dres sing was maintained with dry dressing. She was placed on Lovenox on postop day 1, to be taken daily for 14 days. She was given a home prescription for this, as well as JOSE EDUARDO hose, for the following 2 we eks. She completed a 24-hour course of cephazolin following surgery, and she tolerated that well wit h no signs of cross reactivity from her penicillin allergy. She was able to resume all home medicati ons. She was cleared by Physical Therapy, OT, and Case Management to go home and to follow up in 10- 12 days or p.r.n. additional questions or concerns which may arise. CONDITION ON DISCHARGE: Good. Discharge to home. Patient was seen and examined in conjunction with Dr. Koch. /[id number]/RADHAL
== END 2017-10-09 12:44 | disposition home or self-care (01) | DRG 482 ==
LOC: EDUNIT# → OBSVTOIN 16:48 → F3N 22:54
PROVIDERS: ADMIT Orthopaedic Surgery; ATTEND Orthopaedic Surgery
PROC: BQ101ZZ Fluoroscopy of Right Hip using Low Osmolar Contrast (ICD-10-PCS; principal; 2017-10-07 19:00)
PROC: 0QS604Z Reposition Right Upper Femur with Internal Fixation Device, Open Approach (ICD-10-PCS; principal; 2017-10-07 19:00)
DX: S72.041A Displaced fracture of base of neck of right femur, initial encounter for closed fracture (principal); V80.010A Animal-rider injured by fall from or being thrown from horse in noncollision accident, initial encounter; Y93.52 Activity, horseback riding; Y92.39 Other specified sports and athletic area as the place of occurrence of the external cause; Z85.3 Personal history of malignant neoplasm of breast; Z90.13 Acquired absence of bilateral breasts and nipples; Z79.890 Hormone replacement therapy; Z88.1 Allergy status to other antibiotic agents
CPT/HCPCS: 96374; 97116-GP; 97161-GP; 97165-GO; 97535-GO; C1713; C1769; J0171; J0690; J1100; J1170; J1650; J2175; J2250; J2405; J2550; J2704; J3010

== ENCOUNTER 2017-10-20 20:21 | Emergency (ER) | payer OTHER ==
--- NOTE | 2017-10-20 20:36 | EDPHY ---
H & P Stated Complaint: post op from 10/07, c/o right calf pain with flexing no sweeling Time Seen by Provider: 10/20/17 20:30 HPI/ROS: Chief complaint: Right calf pain, concerned for DVT History of present illness: This is a 57-year-old female who presents to the emergency department for right calf pain, she is concerned for a DVT. On October 07 of this year she fell off a horse and fractured her right hip. She underwent surgery. She was discharged 2 days after surgery. She has been doing well. She has been using compression stockings. She is still currently on Lovenox 40 mg once daily for thromboembolic prophylaxis. However this morning she started developed the discomfort and wanted to make sure it was not a DVT. She denies new trauma. She denies abnormal coolness or paresthesias in the leg. She denies cough or trouble breathing. She denies fever. Review of systems: A 10 point review of systems was obtained and other than described above was negative - Personal History Current Tetanus Diphtheria and Acellular Pertussis (TDAP): Yes Tetanus Vaccine Date: 2011 - Medical/Surgical History Hx Asthma: No Hx Chronic Respiratory Disease: No Hx Diabetes: No Hx Cardiac Disease: No Hx Renal Disease: No Hx Cirrhosis: No Hx Alcoholism: No Hx HIV/AIDS: No Hx Splenectomy or Spleen Trauma: No Other PMH: s/p left hand surgery, mastectomy, ortho right hip - Social History Smoking Status: Never smoked - Physical Exam Exam: General Appearance: Alert, no distress. Skin: No abnormal lesions to the right lower extremity. Musculoskeletal: She can move the digits in the right foot. Vascular: DP and PT pulses 2+. Neurologic: Sensation intact throughout the right leg. Constitutional: Initial Vital Signs Temperature (C) 36.8 C 10/20/17 20:24 Heart Rate 66 10/20/17 20:24 Respiratory Rate 14 10/20/17 20:24 Blood Pressure 110/64 10/20/17 20:24 O2 Sat (%) 98 10/20/17 20:24 O2 Delivery Mode Room Air Allergies/Adverse Reactions: amoxicillin [Amoxicillin] Allergy (Verified 02/11/14 16:02) Hives Home Medications: Medication Instructions Recorded Herbals/Supplements -Info Only 1 ea PO DAILY 02/11/14 [place]-3 Fatty Acids [Fish Oil 1000 2,000 mg PO DAILY 02/11/14 mg (*)] Tamoxifen Citrate 20 mg PO DAILY 10/07/17 Enoxaparin [Lovenox 40 MG (*)] 40 mg SC DAILY #13 syr 10/08/17 Enoxaparin [Lovenox 60 MG (*)] 60 mg SQ Q12H 5 Days syr 10/20/17 Ferrous Sulfate [Ferrous Sulf 325 325 mg PO DAILY 10/20/17 MG (*)] Multivitamins [Multivitamin (*)] 1 tab PO DAILY 10/20/17 Medical Decision Making - Diagnostics Imaging Results: Imaging Impressions Extremity Venous Study 10/20/17 20:33 Impression: Positive deep venous thrombosis in the right calf gastrocnemius vein. Findings and recommendations discussed with Emergency Department physician, [facility] Braun at 21:19 hour, 10/20/2017. Final report concurs with initial preliminary interpretation. Imaging: Discussed imaging studies w/ call center analyst Radiologist ED Course/Re-evaluation: Patient is discussed with my secondary supervising physician Dr. Freida Gutierrez. Patient presents with right calf pain. This is in the setting of recent surgery for traumatic hip injury. Her leg is neurovascularly intact. Ultrasound confirms a DVT in the gastrocnemius vein. I have consulted with the hospitalist, Dr. Wylie. He does recommends increasing patient from a prophylactic dose of Lovenox to a therapeutic dose of 1 milligram/kilogram twice daily. I have discussed the plan with the patient who has voiced understanding and agreement with it. She is given 60 mg of Lovenox this evening. She is sent home with a prescription for 5 more days worth. She is asked to follow up with a primary care doctor or her map and chart mounter/oncologist as she has 1 from a previous history of breast cancer to discuss prolonged therapy , she understands after she completes Lovenox she will need to transition to a new medication and likely will need to stay on it for 3 months. She has no evidence for PE at this time. Return precautions are given. Differential Diagnosis: Included but not limited to superficial thrombophlebitis, DVT, musculoskeletal pain - Data Points Laboratory Results: Laboratory Results 10/20/17 21:45 10/20/17 21:45 10/20/17 10/20/17 10/20/17 21:45 21:45 21:45 WBC 5.76 10^3/uL 10^3/uL (3.80-9.50) RBC 3.62 10^6/uL L 10^6/uL (4.18-5.33) Hgb 12.5 g/dL L g/dL (12.6-16.3) Hct 36.7 % L % (38.0-47.0) MCV 101.4 fL H fL (81.5-99.8) MCH 34.5 pg H pg (27.9-34.1) MCHC 34.1 g/dL g/dL (32.4-36.7) RDW 11.9 % % (11.5-15.2) Plt Count 331 10^3/uL 10^3/uL (150-400) MPV 8.8 fL fL (8.7-11.7) Neut % (Auto) 57.6 % % (39.3-74.2) Lymph % (Auto) 31.6 % % (15.0-45.0) [place] % (Auto) 7.1 % % (4.5-13.0) Eos % (Auto) 3.0 % % (0.6-7.6) Baso % (Auto) 0.7 % % (0.3-1.7) Nucleat RBC Rel Count 0.0 % % (0.0-0.2) Absolute Neuts (auto) 3.32 10^3/uL 10^3/uL (1.70-6.50) Absolute Lymphs (auto) 1.82 10^3/uL 10^3/uL (1.00-3.00) Absolute Monos (auto) 0.41 10^3/uL 10^3/uL (0.30-0.80) Absolute Eos (auto) 0.17 10^3/uL 10^3/uL (0.03-0.40) Absolute Basos (auto) 0.04 10^3/uL 10^3/uL (0.02-0.10) Absolute Nucleated RBC 0.00 10^3/uL 10^3/uL (0-0.01) Immature Gran % 0.0 % % (0.0-1.1) Immature Gran # 0.00 10^3/uL 10^3/uL (0.00-0.10) PT 13.0 SEC SEC (12.0-15.0) INR 0.96 (0.83-1.16) APTT 21.8 SEC L SEC (23.0-38.0) Sodium 139 mEq/L mEq/L (135-145) Potassium 4.2 mEq/L mEq/L (3.5-5.2) Chloride 103 mEq/L mEq/L (97-110) Carbon Dioxide 26 mEq/l mEq/l (22-31) Anion Gap 10 mEq/L mEq/L (8-16) BUN 15 mg/dL mg/dL (7-23) Creatinine 0.7 mg/dL mg/dL (0.6-1.0) Estimated GFR > 60 Glucose 86 mg/dL mg/dL (70-100) Calcium 9.0 mg/dL mg/dL (8.5-10.4) Medications Given: Enoxaparin Sodium (Lovenox) 60 mg SC EDNOW ONE Stop: 10/21/17 22:25 Last Admin: 10/20/17 22:53 Dose: 60 mg Departure - Departure Disposition: Home, Routine, Self-Care Clinical Impression: DVT (deep venous thrombosis) Condition: Good Instructions: Deep Vein Thrombosis (ED) Additional Instructions: Follow-up with a primary care doctor or your map and chart mounter in the next 1-2 days for recheck Take your Lovenox twice daily for the next 5 days. You need to discuss continuing therapy with your primary care doctor, when you finish the Lovenox you're not done with treatment, typically you need 3 months of therapy If symptoms worsen or new symptoms develop return to the emergency room for recheck Referrals: Frances Waddell MD [Primary Care Provider] - As per Instructions Dixie Escobar MD [Medical Doctor] - As per Instructions Prescriptions: Enoxaparin [Lovenox 60 MG (*)] 60 mg SQ Q12H 5 Days syr
[2017-10-20 21:52] LABS: PLATELET COUNT 331 10^3/uL (150-400)
[2017-10-20 21:59] LABS: INR 0.96 (0.83-1.16)
[2017-10-20 22:48] VITALS: BP 98/55
[2017-10-21] MEDS ORDERED: ENOXAPARIN 60 MG/0.6 ML SYR SC ONE (22:24)
== END 2017-10-20 22:59 | disposition home or self-care (01) ==
LOC: UNDOADMOB 21:41
DX: I82.401 Acute embolism and thrombosis of unspecified deep veins of right lower extremity (principal)
CPT/HCPCS: J1650

== ENCOUNTER → 2017-12-06 | Outpatient (CLI) | payer OTHER | LOC: FIMAGING 09:36 | PROVIDERS: ATTEND Internal Medicine Hematology & Oncology | DX: I82.491 Acute embolism and thrombosis of other specified deep vein of right lower extremity (principal) ==

== ENCOUNTER 2017-12-12 06:27 | Day surgery (SDC) | payer OTHER ==
[2017-12-12] MEDS ORDERED: LR 1,000 ML IV ONE (06:54)
[2017-12-12] MEDS ORDERED: LIDOCAINE 1% 300 MG/30 ML SDV ONE (07:17)
[2017-12-12] MEDS ORDERED: EPINEPHrine 1 MG/ML INJ ONE (07:17)
[2017-12-12] MEDS ORDERED: MIDAZOLAM 2 MG/2 ML VIAL IVP ONE (08:11)
[2017-12-12] MEDS ORDERED: SCOPOLAMINE HYDROBROMIDE 1 MG/3 DAYS PATCH TD ONE ×2 (08:11)
[2017-12-12] MEDS ORDERED: MIDAZOLAM 2 MG/2 ML VIAL ONE (08:11)
--- NOTE | 2017-12-12 08:13 | PDANEPAE ---
ANE History of Present Illness uterine polyps ANE Past Medical History - Cardiovascular History Hx Hypertension: No Hx Arrhythmias: No Hx Coronary Artery / Peripheral Vascular Disease: No Hx CHF / Valvular Disease: No Hx Palpitations: No Cardiovascular History Comment: DVT R LE FOLLOWING R HIP SURGERY - Pulmonary History Hx COPD: No Hx Asthma/Reactive Airway Disease: No Hx Recent Upper Respiratory Infection: No Hx Oxygen in Use at Home: No Hx Sleep Apnea: No Sleep Apnea Screening Result - Last Documented: Negative - Neurologic History Hx Cerebrovascular Accident: No Hx Seizures: No Hx Dementia: No - Endocrine History Hx Diabetes: No - Renal History Hx Renal Disorders: No - Liver History Hx Hepatic Disorders: No - Neurological & Psychiatric Hx Hx Neurological and Psychiatric Disorders: No - Cancer History Hx Cancer: Yes Cancer History Comment: R breast CA./KAREN MASTECTOMY 2013 - Congenital Disorder History Hx Congenital Disorders: No - GI History Hx Gastrointestinal Disorders: No - Other Health History Other Health History: none - Chronic Pain History Chronic Pain: No - Surgical History Prior Surgeries: R HIP SURG 10/07/2017. 1986-L thumb surg. ANE Review of Systems Review of systems is: negative Review of Systems: - Exercise capacity METS (RN): 4 METS ANE Patient History - Allergies Allergies/Adverse Reactions: amoxicillin [Amoxicillin] Allergy (Verified 02/11/14 16:02) Hives - Home Medications Home Medications: Herbals/Supplements -Info Only 1 ea PO DAILY 02/11/14 [Last Taken 12/11/17] [place]-3 Fatty Acids [Fish Oil 1000 mg (*)] 2,000 mg PO DAILY 02/11/14 [Last Taken 12/11/17] Tamoxifen Citrate 20 mg PO DAILY 10/07/17 [Last Taken 1 Week Ago ~12/05/17] Ferrous Sulfate [Ferrous Sulf 325 MG (*)] 325 mg PO DAILY 10/20/17 [Last Taken 12/11/17] Multivitamins [Multivitamin (*)] 1 tab PO DAILY 10/20/17 [Last Taken 12/11/17] Xarelto 15mg (*) 12/11/17 [Last Taken 12/08/17] - NPO status NPO Status: no food or drink >8 hours NPO Since - Liquids (Date): 12/12/17 NPO Since - Liquids (Time): 03:00 NPO Since - Solids (Date): 12/11/17 NPO Since - Solids (Time): 18:30 - Smoking Hx Smoking Status: Never smoked - Family Anes Hx Family Hx Anesthesia Complications: mother-memory issues. ANE Labs/Vital Signs - Vital Signs Vital Signs: reviewed preoperatively; see RN documention for details Blood Pressure: 100/63 Heart Rate: 59 Respiratory Rate: 14 O2 Sat (%): 96 Height: 180.34 cm Weight: 63.503 kg ANE Physical Exam - Airway Neck exam: FROM Mallampati Score: Class 2 - Pulmonary Pulmonary: no respiratory distress - Cardiovascular Cardiovascular: regular rate and rhythym - ASA Status ASA Status: II ANE Anesthesia Plan Anesthesia Plan: GA w LMA
[2017-12-12] MEDS ORDERED: PROPOFOL 200 MG/20 ML VIAL ONE (08:15)
[2017-12-12] MEDS ORDERED: DEXAMETHASONE 4 MG/ML VIAL ONE (08:15)
[2017-12-12] MEDS ORDERED: fentaNYL 100 MCG/2 ML INJ ONE (08:15)
[2017-12-12] MEDS ORDERED: LIDOCAINE 2% 5 ML SDV ONE (08:15)
[2017-12-12] MEDS ORDERED: ONDANSETRON 4 MG/2 ML VIAL ONE (08:15)
[2017-12-12] MEDS ORDERED: KETOROLAC 30 MG/1 ML SDV ONE (08:15)
--- NOTE | 2017-12-12 08:18 | PDHPUP ---
History & Physical Update H&P update statement: This history and physical update is based on an assessment of the patient which was completed after admission or registration (within 24 hours), but prior to the surgery/procedure. H&P update: H&P reviewed & patient examined, no change in patient's condition since H&P completed
[2017-12-12] MEDS ORDERED: ePHEDrine SULFATE 25 MG/5 ML SYR ONE (08:40)
[2017-12-12] MEDS ORDERED: ONDANSETRON 4 MG/2 ML VIAL IVP PRN (09:22)
[2017-12-12] MEDS ORDERED: fentaNYL 100 MCG/2 ML INJ IVP PRN (09:22)
[2017-12-12] MEDS ORDERED: NALOXONE HCL 0.4 MG/ML INJ IVP PRN (09:22)
[2017-12-12] MEDS ORDERED: oxyCODONE IR 5 MG TAB PO PRN (09:22)
[2017-12-12] MEDS ORDERED: ACETAMINOPHEN 500 MG TAB PO PRN (09:22)
[2017-12-12] MEDS ORDERED: HYDROCODONE/APAP 5/325 TAB PO PRN (09:22)
[2017-12-12] MEDS ORDERED: PROMETHAZINE HCL 25 MG/ML INJ IVP PRN (09:22)
[2017-12-12] MEDS ORDERED: HYDROmorphONE/DILAUDID 1 MG/ML INJ IVP PRN (09:22)
--- NOTE | 2017-12-12 09:24 | POSTANESTH ---
Post Anesthetic Evaluation Cardiovascular Status: Normal, Stable Respiratory Status: Normal, Stable Level of Consciousness/Mental Status: Can Participate in Eval Pain Control: Adequate, Prn Tx Ordered Nausea/Vomiting Control: Adequate, Prn Tx Ordered Complications Possibly Related to Anesthesia: None Noted
--- NOTE | 2017-12-12 09:30 | POSTOPPROG ---
Post Op Note Date of Operation: 12/12/17 Surgeon: Lanie Moody Anesthesiologist: Clifton Mooney Anesthesia: LMA Pre-op Diagnosis: DUB , endometrial polyp Post-op Diagnosis: same Indication: same Procedure: H/s polypectomy Findings: large 7cm polyp Inf/Abcess present in the surg proc area at time of surgery?: No EBL: Minimal Complications: none Specimen(s): polyp
--- NOTE | 2017-12-12 10:53 | GOP ---
[f rep st] OPERATIVE REPORT DATE OF OPERATION: 12/12/2017 SURGEON: Lanie Moody MD ANESTHESIA: General with LMA. ANESTHESIOLOGIST: Clifton Mooney MD. PREOPERATIVE DIAGNOSIS: 1. Dysfunctional uterine bleeding. 2. Very large endometrial polyp. POSTOPERATIVE DIAGNOSIS: 1. Dysfunctional uterine bleeding. 2. Very large endometrial polyp. PROCEDURE PERFORMED: Hysteroscopic polypectomy. FINDINGS: A large polyp that originated from the posterior wall of the uterus by the fundus near the tubal ostia, and continued out through the cervical os another 5 cm. ESTIMATED BLOOD LOSS: Minimal. INDICATIONS: Patient is a 57-year-old who has known history of breast cancer, and on tamoxifen thera py she recently had a right hip fracture, via a horse accident, and ended up going on Xarelto for a D VT soon after her surgery, and then had spontaneous vaginal bleeding, which was quite heavy. Exam in the office showed a very large polyp protruding from the cervical os about 6 cm. An ultrasound show ed that the origin of the polyp was in the upper fundus of the uterus. Because of her bleeding histo ry and DVT, felt that it was muller to remove this hysteroscopically. DESCRIPTION OF PROCEDURE: With informed consent signed patient was taken to the operating room and p laced under general anesthesia, placed in low dorsal lithotomy position being careful to not over fle x her right hip. Patient was prepped and draped in the usual sterile fashion and bladder previously emptied. The findings as noted above. Tenaculum placed on the anterior lip of the cervix. Hysteros cope placed into the uterine cavity using normal saline as a filling medium, and the [employer] rotary blade placed through the hysteroscope and resection of the polyp at its origin site done, and then the rest of the polyp was removed manually, but the polyp where its origin was, was completely removed and resected, and there were several other small polyps in the endometrial cavity removed as well. So, once this was done, and then the rest of the polyp just removed manually, hemostasis was n oted, and the patient placed in the supine position, awakened in the operating room, and taken to the recovery room in stable condition, tolerating the procedure well. Net fluid deficit was 120 mL. COMPLICATIONS: None. /[id number]/MODL
[2017-12-12 11:08] VITALS: BP 96/65
[2017-12-15] MEDS ORDERED: PATCH REMOVAL 1 EA PATCH TD SCH (08:11)
== END 2017-12-12 10:49 | disposition home or self-care (01) ==
LOC: FSGY 06:27
PROVIDERS: ATTEND Obstetrics & Gynecology Gynecology
PROC: 0UB98ZX Excision of Uterus, Via Natural or Artificial Opening Endoscopic, Diagnostic (ICD-10-PCS; principal; 2017-12-12 08:00)
DX: N93.8 Other specified abnormal uterine and vaginal bleeding (principal); N84.0 Polyp of corpus uteri
CPT/HCPCS: 58558; C1782; J0171; J1100; J1885; J2250; J2405; J2704; J3010